=== PATIENT | female | born 1985 | race Caucasian/White ===

== ENCOUNTER → 2016-10-13 | Outpatient (CLI) | payer BC ==
[~2016-10-13] MED LIST: CEPHALEXIN500 M1 PO; CLARITIN 1010 MG/TAB PO; IBU600 MG PO; LEVEMIR SQ; MOTRIN 800800 MG/TAB PO; PERCOCET 325 MG1 TA2 PO; PRENATAL1 TA1 PO
== END ==
LOC: SUN.DIA 08:22
DX: O24.419 Gestational diabetes mellitus in pregnancy, unspecified control (principal); Z3A.30 30 weeks gestation of pregnancy
CPT/HCPCS: G0108

== ENCOUNTER → 2016-10-19 | Outpatient (CLI) | payer BC | LOC: SUN.DIA 14:30 | DX: O24.419 Gestational diabetes mellitus in pregnancy, unspecified control (principal); Z3A.31 31 weeks gestation of pregnancy; Z71.3 Dietary counseling and surveillance; Z87.891 Personal history of nicotine dependence | CPT/HCPCS: G0108 ==

== ENCOUNTER → 2016-11-01 | Outpatient (CLI) | payer BC | LOC: SUN.DIA 10:00 → BHSO 10:00 | DX: O24.419 Gestational diabetes mellitus in pregnancy, unspecified control (principal); Z3A.33 33 weeks gestation of pregnancy; Z71.3 Dietary counseling and surveillance; Z87.891 Personal history of nicotine dependence | CPT/HCPCS: G0108 ==

== ENCOUNTER 2016-12-06 03:20 | Inpatient (IN) | payer BC ==
[2016-12-06] VITALS (24 sets, daily range): BP systolic 95–137; BP diastolic 2–82; PULSE 64–85; TEMP 97.6–98.1
[~2016-12-06] VITALS: Ht 162.6 cm; Wt 91.4 kg
[~2016-12-06 03:20] MED LIST changes: -CLARITIN 1010 MG/TAB PO; -IBU600 MG PO; -LEVEMIR SQ
[2016-12-06] MEDS ORDERED: LEVEMIR SQ (03:46)
[2016-12-06] MEDS ORDERED: CLARITIN 1010 MG/TAB PO (03:47)
[2016-12-06 04:21] LABS: BASO % 0.3 % (0.0-2.0); EOS # 0.2 (0.0-0.7); EOS % 1.8 % (0-4.0); GRAN # 8.1 (1.4-6.5); HEMATOCRIT 37.4 % (37.0-47.0); HEMOGLOBIN 12.7 g/dl (12.5-16.0); LYMPH # 3.1 (1.2-3.4); LYMPH % 25.2 % (20.0-51.0); MEAN CELL VOLUME 88 fl (80.0-100.0); MEAN CORPUSCULAR HEMOGLOBIN 30 pg (27.0-31.0); MEAN CORPUSCULAR HGB CONC 34 g/dl (33.0-37.0); MEAN PLATELET VOLUME 9.8 fl (7.4-10.4); MONO # 0.8 (0.1-0.6); MONO % 6.2 % (1.7-9.3); PLATELET COUNT 220 K/mm3 (130-400); RED BLOOD COUNT 4.23 M/mm3 (4.10-5.30); WHITE BLOOD COUNT 12.3 K/mm3 (4.8-10.8)
[2016-12-07 06:20] LABS: HEMATOCRIT 31.1 % (37.0-47.0); HEMOGLOBIN 10.4 g/dl (12.5-16.0)
[2016-12-07 08:00] VITALS: BP 106/54; PULSE 75; TEMP 97.8
[2016-12-07 17:00] VITALS: BP 123/58; PULSE 79; TEMP 97.5
[2016-12-07 20:50] VITALS: BP 111/62; PULSE 87; TEMP 98
[2016-12-08 08:15] VITALS: BP 109/66; PULSE 75; TEMP 97.7
[2016-12-08] MEDS ORDERED: PERCOCET 325 MG1 TA2 PO (08:38)
[2016-12-08] MEDS ORDERED: IBU600 MG PO (08:38)
== END 2016-12-08 11:40 | disposition home or self-care (01) | DRG 766 ==
LOC: LDRO 03:20 → LDR 04:03 → OB 04:03
PROVIDERS: Obstetrics & Gynecology
PROC: 10D00Z1 Extraction of Products of Conception, Low, Open Approach (ICD-10-PCS; principal; 2016-12-06)
DX: O75.82 Onset (spontaneous) of labor after 37 completed weeks of gestation but before 39 completed weeks gestation, with delivery by (planned) cesarean section (principal); O34.03 Maternal care for unspecified congenital malformation of uterus, third trimester; Q51.2 Other doubling of uterus; O32.1XX0 Maternal care for breech presentation, not applicable or unspecified; O24.420 Gestational diabetes mellitus in childbirth, diet controlled; O34.211 Maternal care for low transverse scar from previous cesarean delivery; N85.8 Other specified noninflammatory disorders of uterus; Z3A.37 37 weeks gestation of pregnancy; Z37.0 Single live birth
CPT/HCPCS: J0595; J0690; J1885; J2270; J2370; J2405; J2590; J7120

== ENCOUNTER 2017-07-09 23:16 | Emergency (ER) | payer BC ==
[~2017-07-09] VITALS: Ht 162.6 cm; Wt 76.4 kg
[~2017-07-09 23:16] MED LIST changes: +CLARITIN 1010 MG/TAB PO; +IBU600 MG PO; +LEVEMIR SQ
[2017-07-09 23:18] VITALS: BP 124/66; TEMP 98.1
[2017-07-09] MEDS ORDERED: CEPHALEXIN500 M1 PO (23:20)
[2017-07-09 23:53] LABS: COLLECTION METHOD CLEAN CATCH
[2017-07-09 23:56] LABS: BASO % 0.3 % (0.0-2.0); EOS # 0.2 (0.0-0.7); EOS % 1.6 % (0-4.0); GRAN % 59.9 % (42.2-75.2); HEMATOCRIT 39.9 % (37.0-47.0); HEMOGLOBIN 13.7 g/dl (12.5-16.0); LYMPH # 4.2 (1.2-3.4); LYMPH % 31.4 % (20.0-51.0); MEAN CELL VOLUME 89 fl (80.0-100.0); MEAN CORPUSCULAR HEMOGLOBIN 30 pg (27.0-31.0); MEAN CORPUSCULAR HGB CONC 34 g/dl (33.0-37.0); MEAN PLATELET VOLUME 9.1 fl (7.4-10.4); MONO # 0.9 (0.1-0.6); MONO % 6.5 % (1.7-9.3); PLATELET COUNT 271 K/mm3 (130-400); RED BLOOD COUNT 4.51 M/mm3 (4.10-5.30); REDCELL DISTRIBUTION WIDTH-CV 12.9 % (11.5-14.5)
[2017-07-10 00:02] LABS: ALBUMIN 4.2 gm/dL (3.5-5.0); BILIRUBIN,TOTAL 0.2 mg/dL (0.0-1.0); CALCIUM 9.5 mg/dL (8.4-10.2); CREATININE, serum 0.61 mg/dL (0.52-1.25); POTASSIUM 3.5 mmol/L (3.4-5.0); TOTAL PROTEIN 7.8 gm/dL (6.4-8.2)
[2017-07-10 00:21] LABS: PH 7 (5-8); SQUAMOUS EPITHELIAL None Seen /hpf; URINE APPEARANCE Cloudy; URINE BACTERIA None Seen /hpf; URINE BILIRUBIN Negative (NEGATIVE); URINE BLOOD 3+ (NEGATIVE); URINE COLOR Red; URINE GLUCOSE Negative (NEGATIVE); URINE KETONE Negative (NEGATIVE); URINE LEUKOCYTE ESTERASE Negative (NEGATIVE); URINE NITRATE Negative (NEGATIVE); URINE PROTEIN(semi-quant) 2+ (NEGATIVE); URINE RBC >50 /hpf; URINE UROBILINOGEN Negative (NEGATIVE)
[2017-07-10 01:01] VITALS: PULSE 75
== END 2017-07-10 01:01 | disposition home or self-care (01) ==
LOC: COL.ER 23:16
PROVIDERS: Nurse Practitioner
DX: O20.0 Threatened abortion (principal); Z90.49 Acquired absence of other specified parts of digestive tract; Z3A.09 9 weeks gestation of pregnancy

== ENCOUNTER 2019-05-10 19:57 | Emergency (ER) | payer BC ==
[~2019-05-10] VITALS: Ht 162.6 cm; Wt 76.4 kg
[~2019-05-10 19:57] MED LIST changes: +PRENATAL MVI
[2019-05-10 20:27] VITALS: BP 153/81; TEMP 98.9
[2019-05-10 22:27] VITALS: PULSE 82
== END 2019-05-10 22:28 | disposition home or self-care (01) ==
LOC: COL.ER 19:57
DX: S61.211A Laceration without foreign body of left index finger without damage to nail, initial encounter (principal); S61.012A Laceration without foreign body of left thumb without damage to nail, initial encounter; W26.0XXA Contact with knife, initial encounter; Y92.009 Unspecified place in unspecified non-institutional (private) residence as the place of occurrence of the external cause

== ENCOUNTER 2021-08-01 20:51 | Emergency (ER) | payer BC ==
[~2021-08-01] VITALS: Ht 162.6 cm; Wt 74.5 kg
[2021-08-01 21:02] VITALS: TEMP 98.4
[2021-08-01 22:01] LABS: COLLECTION METHOD CLEAN CATCH
[2021-08-01 22:04] LABS: BASO # 0.1 K/mm3 (0.0-0.2); BASO % 0.6 % (0.0-2.0); EOS # 0.4 K/mm3 (0.0-0.7); EOS % 3.4 % (0.0-4.0); GRAN # 6.1 K/mm3 (1.4-6.5); GRAN % 56.5 % (42.2-75.2); HEMATOCRIT 37.5 % (37.0-47.0); HEMOGLOBIN 12.9 g/dl (12.5-16.0); LYMPH # 3.6 K/mm3 (1.2-3.4); LYMPH % 33.1 % (20.0-51.0); MEAN CELL VOLUME 89 fl (80.0-100.0); MEAN CORPUSCULAR HEMOGLOBIN 31 pg (27-31); MEAN CORPUSCULAR HGB CONC 34 g/dl (33.0-37.0); MEAN PLATELET VOLUME 9.5 fl (7.4-10.4); MONO # 0.7 K/mm3 (0.1-0.6); MONO % 6.2 % (1.7-9.3); PLATELET COUNT 266 K/mm3 (130-400)
[2021-08-01 22:27] LABS: PH 6 (5-8); SQUAMOUS EPITHELIAL 0-2 /hpf (0-10); URINE APPEARANCE Hazy (CLEAR/HAZY); URINE BACTERIA None Seen /hpf (NONE SEEN); URINE BILIRUBIN Negative (NEGATIVE); URINE BLOOD 2+ (NEGATIVE); URINE COLOR Yellow (YELLOW); URINE GLUCOSE Negative (NEGATIVE); URINE KETONE Negative (NEGATIVE); URINE LEUKOCYTE ESTERASE Trace (NEGATIVE); URINE NITRATE Negative (NEGATIVE); URINE PROTEIN(semi-quant) Negative (NEGATIVE); URINE RBC 0-2 /hpf (0-2); URINE UROBILINOGEN Negative (NEGATIVE)
[2021-08-01 22:31] LABS: ALANINE AMINOTRANSFERASE 17 U/L (0-55); ALKALINE PHOSPHATASE 101 U/L (40-150); ANION GAP 10 mmol/L (7-16); AST,SGOT 14 U/L (5-34); BILIRUBIN,TOTAL < 0.5 mg/dL (0.2-1.2); BLOOD UREA NITROGEN 16 mg/dL (7-19); CALCIUM 9.3 mg/dL (8.4-10.2); CARBON DIOXIDE 25 mmol/L (22-29); CHLORIDE 107 mmol/L (98-107); CREATININE, serum 0.75 mg/dL (0.57-1.11); GLUCOSE 90 mg/dL (70-99); LIPASE 120 U/L (8-78); POTASSIUM 3.7 mmol/L (3.5-4.5); SODIUM 142 mmol/L (136-145); TOTAL PROTEIN 7.5 gm/dL (6.2-8.1)
[2021-08-01 22:44] VITALS: BP 135/88; PULSE 66
== END 2021-08-01 22:44 | disposition home or self-care (01) ==
LOC: COL.ER 20:51
PROVIDERS: Nurse Practitioner Primary Care
DX: R10.11 Right upper quadrant pain (principal); Z87.891 Personal history of nicotine dependence; Z32.02 Encounter for pregnancy test, result negative
CPT/HCPCS: J1885; J7030